=== PATIENT | female | born 1965 | race Two or more races ===

== ENCOUNTER → 2016-12-28 | Outpatient (CLI) | payer OTHER | LOC: BMCIMAGING 11:46 | PROVIDERS: ATTEND Internal Medicine Rheumatology | DX: Z13.89 Encounter for screening for other disorder (principal); M02.88 Other reactive arthropathies, vertebrae ==

== ENCOUNTER → 2017-03-08 | Outpatient (CLI) | payer OTHER | LOC: BRMIMAGING 08:06 | DX: Z12.31 Encounter for screening mammogram for malignant neoplasm of breast (principal) | CPT/HCPCS: G0202 ==

== ENCOUNTER → 2018-12-11 | Outpatient (CLI) | payer BC | LOC: BMCIMAGING 11:42 | PROVIDERS: ATTEND Internal Medicine Rheumatology | DX: R05 Cough (principal) ==